=== PATIENT | female | born 1985 | race Caucasian/White ===

== ENCOUNTER 2023-03-17 04:10 | Day surgery (SDC) | payer OTHER ==
[2023-03-16 13:27] VITALS: BMI 25.8
[2023-03-17] MEDS ORDERED: BUPIVACAINE HCL/PF 0.5% (5MG/ML) 10 ML VIAL ONE (07:49)
[2023-03-17] MEDS ORDERED: LIDOCAINE HCL/PF 1% SDV 5ML VIAL ONE (07:49)
[2023-03-17 09:04] VITALS: RESP 20
[2023-03-17] MEDS ORDERED: LIDOCAINE HCL 1% PRESERVATIVE FREE - 30ML VIAL IJ ONE ×2 (10:47→10:48)
[2023-03-17] MEDS ORDERED: BUPIVACAINE HCL/PF 0.5% (5MG/ML) 10 ML VIAL IJ ONE ×2 (10:47→10:48)
[2023-03-17 12:24] VITALS: BP 132/78; TEMP 97.8
[2023-03-17 12:32] VITALS: PULSE 78
[2023-03-17] MEDS ORDERED: ACETAMINOPHEN 500 MG TABLET (FP) PO PRN (15:33)
== END 2023-03-17 12:33 | disposition home or self-care (01) ==
LOC: JASU-SURG 04:10
PROVIDERS: ATTEND Pain Medicine Pain Medicine
PROC: 3E0T33Z Introduction of Anti-inflammatory into Peripheral Nerves and Plexi, Percutaneous Approach (ICD-10-PCS; 2023-03-17)
PROC: 3E0T3BZ Introduction of Anesthetic Agent into Peripheral Nerves and Plexi, Percutaneous Approach (ICD-10-PCS; principal; 2023-03-17 10:30)
DX: M47.812 Spondylosis without myelopathy or radiculopathy, cervical region (principal)
CPT/HCPCS: 76000-TC-FY

== ENCOUNTER 2024-03-30 06:14 | Day surgery (SDC) | payer SELFPAY ==
[2024-03-29 11:19] VITALS: BMI 27.6
[2024-03-30] MEDS ORDERED: PROPOFOL 80 ML ONE (07:28)
[2024-03-30] MEDS ORDERED: MIDAZOLAM HCL 2 MG/2 ML SINGLE DOSE VIAL ONE (07:28)
[2024-03-30] MEDS ORDERED: HYDROmorphone HCL/PF 1 MG/ML VIAL ONE ×3 (07:28→13:26)
[2024-03-30] MEDS ORDERED: ROCURONIUM BROMIDE 50 MG/5 ML SYRINGE ONE ×2 (07:28→11:28)
[2024-03-30] MEDS ORDERED: ONDANSETRON 4 MG/2 ML VIAL ONE ×3 (07:29→16:16)
[2024-03-30] MEDS ORDERED: LIDOCAINE HCL/PF 2% SDV 5ML VIAL ONE (07:29)
[2024-03-30] MEDS ORDERED: DEXAMETHASONE SOD PHOSPHATE 4 MG/1 ML VIAL ONE (07:29)
[2024-03-30] MEDS ORDERED: SUGAMMADEX SODIUM 200 MG/2 ML VIAL ONE (07:30)
[2024-03-30] MEDS ORDERED: SEVOFLURANE 250 ML BTL ONE (07:31)
[2024-03-30] MEDS ORDERED: BUPIVACAINE HCL/PF 0.25% (2.5MG/ML) 10 ML VIAL ONE (07:47)
[2024-03-30] MEDS ORDERED: EPINEPHrine/PF 1 MG/1 ML (1:1,000) AMPULE ONE (07:47)
[2024-03-30] MEDS ORDERED: LIDOCAINE HCL 1%, 10 MG/ML (20ML VIAL) ONE (07:48)
[2024-03-30] MEDS ORDERED: GUM MASTIC/STORAX/MSAL/ALCOHOL 1 DRP DROPSBTL MC ONE (07:48)
[2024-03-30] MEDS ORDERED: BUPIVACAINE HCL/PF 2.5 MG/ML - 30 ML VIAL IJ ONE (07:48)
[2024-03-30] MEDS ORDERED: BACITRACIN ZINC 15 GM TUBE TOPICAL OINTMENT ONE (07:48)
[2024-03-30] MEDS ORDERED: ceFAZolin SODIUM 1 GM VIAL ONE ×2 (10:08→14:49)
[2024-03-30] MEDS ORDERED: LACTATED RINGERS SOLUTION 1,000 ML IV SCH (11:45)
[2024-03-30] MEDS ORDERED: oxyCODONE HCL 5 MG TABLET PO PRN ×2 (11:45)
[2024-03-30] MEDS ORDERED: PROPOFOL 20 ML ONE (12:03)
[2024-03-30] MEDS: BUPIVACAINE HCL/PF 2.5 MG/ML - 30 ML VIAL IJ ONE ×2 (13:35→15:40)
[2024-03-30] MEDS ORDERED: GLYCOPYRROLATE 0.2 MG/1 ML VIAL ONE (14:56)
[2024-03-30] MEDS ORDERED: NEOSTIGMINE METHYLSULFATE 0.5 MG/1 ML - 10 ML MDV ONE (14:56)
[2024-03-30] MEDS ORDERED: ACETAMINOPHEN INJECTION 100 ML IVPB ONE (16:16)
[2024-03-30] MEDS: ONDANSETRON 4 MG/2 ML VIAL IVPUSH PRN (16:16)
[2024-03-30] MEDS: ACETAMINOPHEN 1000 MG/100 ML BAG IVPB PRN (16:20)
[2024-03-30] MEDS: PROMETHAZINE HCL 25 MG/1 ML VIAL IVPB PRN (16:30)
[2024-03-30] MEDS ORDERED: PROMETHAZINE HCL 25 MG/1 ML VIAL ONE (16:34)
[2024-03-30 17:25] VITALS: RESP 18
[2024-03-30 17:59] VITALS: BP 124/80; PULSE 96
[2024-03-30 18:29] VITALS: TEMP 97.2
== END 2024-03-30 18:30 | disposition home or self-care (01) ==
LOC: FASU 06:14
PROVIDERS: ATTEND Surgery
CPT/HCPCS: 94760; J0131

== ENCOUNTER 2024-07-07 09:31 | Emergency (ER) | payer OTHER ==
[2024-07-07 10:00] VITALS: BP 125/89; PULSE 66; RESP 16; TEMP 98.3; BMI 27.4
[2024-07-07] MEDS: SODIUM CHLORIDE 0.9% 500 ML INFUS.BAG IV ONE (10:30)
[2024-07-07] MEDS ORDERED: ACETAMINOPHEN INJECTION 100 ML ONE (10:33)
[2024-07-07] MEDS: ACETAMINOPHEN 1000 MG/100 ML BAG IVPB ONE (10:50)
[2024-07-07] MEDS ORDERED: FAMOTIDINE 20 MG/50 ML IVPB 20 MG/50 ML MG IVPB ONE (10:59)
[2024-07-07] MEDS ORDERED: MAG HYDROX/AL HYDROX/SIMETH 30 ML UNIT-DOSE CUP ONE (10:59)
[2024-07-07 11:02] LABS: HEMATOCRIT 43.1 % (32.4-45.2); HEMOGLOBIN 14.2 G/dL (10.7-15.3); MCHC 32.9 g/dl (32.0-36.0); MEAN CELL VOLUME 88.2 fl (80-96); MEAN PLT VOLUME 8.3 fl (7.5-11.1); PLATELET COUNT 283.6 10^3/uL (134-434); RBC 4.89 10^6/uL (3.60-5.2); RDW 14.5 % (11.6-15.6)
[2024-07-07 11:22] LABS: ALBUMIN 4.4 g/dl (3.4-5.0); ALK PHOS 80 U/L (45-117); ANION GAP 8 mmol/L (4-13); BILIRUBIN,TOTAL 0.8 mg/dl (0.2-1); CALCIUM 9.2 mg/dl (8.5-10.1); CHLORIDE 102 mmol/L (98-107); CO2 27 mmol/L (21-32); CREATININE 0.7 mg/dl (0.6-1.3); GLUCOSE,RANDOM 100 mg/dl (74-106); POTASSIUM 3.9 mmol/L (3.5-5.1); SGOT/AST 12 U/L (15-37); SGPT/ALT 16 U/L (7-52); SODIUM 137 mmol/L (136-145); TOT PROT 6.9 g/dl (6.4-8.2)
[2024-07-07] MEDS: MAG HYDROX/AL HYDROX/SIMETH 30 ML UNIT-DOSE CUP PO ONE (11:45)
[2024-07-07] MEDS: FAMOTIDINE 20 MG/50 ML IVPB 20 MG/50 ML MG IVPB ONE (11:45)
[2024-07-07 12:43] LABS: PLATELET ESTIMATE ADEQUATE
== END 2024-07-07 13:31 | disposition home or self-care (01) ==
LOC: FER 09:31
PROC: 3E033GC Introduction of Other Therapeutic Substance into Peripheral Vein, Percutaneous Approach (ICD-10-PCS; principal; 2024-07-07)
PROC: 3E033NZ Introduction of Analgesics, Hypnotics, Sedatives into Peripheral Vein, Percutaneous Approach (ICD-10-PCS; 2024-07-07)
DX: R10.13 Epigastric pain (principal); R10.12 Left upper quadrant pain
CPT/HCPCS: 36415; 74177-TC; 80053; 81003; 83605; 83690; 84484; 85027; 87086; 93005; 99285-25; J0131

== ENCOUNTER 2025-06-21 06:15 | Day surgery (SDC) | payer SELFPAY ==
[2025-06-16 14:53] VITALS: BMI 24.5
[2025-06-21] MEDS ORDERED: BACITRACIN/POLYMYXIN OPH OINT 3.5 GM TUBE ONE (07:52)
[2025-06-21] MEDS ORDERED: EPINEPHrine 1:1000 P/F - 1 MG/ML AMP ONE ×2 (07:52→13:10)
[2025-06-21] MEDS ORDERED: LIDOCAINE HCL 1%, 10 MG/ML (20ML VIAL) ONE ×2 (07:53→13:11)
[2025-06-21] MEDS ORDERED: MIDAZOLAM HCL 2 MG/2 ML SINGLE DOSE VIAL ONE (07:56)
[2025-06-21] MEDS ORDERED: ROCURONIUM BROMIDE 50 MG/5 ML SYRINGE ONE ×2 (07:56→11:02)
[2025-06-21] MEDS ORDERED: PROPOFOL 20 ML ONE ×3 (07:59→17:17)
[2025-06-21] MEDS ORDERED: SUCCINYLCHOLINE CHLORIDE 200 MG/10 ML SYRINGE ONE (08:04)
[2025-06-21] MEDS ORDERED: BACITRACIN ZINC 15 GM TUBE TOPICAL OINTMENT ONE ×2 (11:32→17:23)
[2025-06-21] MEDS ORDERED: HYDROmorphone HCL/PF 1 MG/ML VIAL ONE ×2 (14:13→16:14)
[2025-06-21] MEDS ORDERED: ONDANSETRON 4 MG/2 ML VIAL ONE (17:19)
[2025-06-21] MEDS ORDERED: PROMETHAZINE HCL 25 MG/1 ML VIAL IVPB PRN (17:40)
[2025-06-21] MEDS ORDERED: LACTATED RINGERS SOLUTION 1,000 ML IV SCH (17:45)
[2025-06-21] MEDS ORDERED: ACETAMINOPHEN 325 MG TABLET (FP) PO PRN (18:15)
[2025-06-21] MEDS ORDERED: ONDANSETRON 4 MG/2 ML VIAL IVPUSH PRN (18:15)
[2025-06-21] MEDS ORDERED: DOCUSATE SODIUM 100 MG CAPSULE (FP) PO PRN (18:17)
[2025-06-21] MEDS: ONDANSETRON 4 MG/2 ML VIAL IVPUSH PRN (18:20)
[2025-06-21] MEDS: LACTATED RINGERS SOLUTION 1,000 ML IV SCH (19:47)
[2025-06-21] MEDS: CLINDAMYCIN 600MG PREMIX IVPB 600 MG/50 ML BAG IVPB SCH (19:48)
[2025-06-21 20:37] VITALS: BP 123/82; PULSE 89; RESP 16; TEMP 98.1
== END 2025-06-21 22:50 | disposition home or self-care (01) ==
LOC: FASUSAT 06:15 → FASU 06:15 → FM/S 19:11 → FASU 19:11 → FM/S 19:25 → FASUSAT 22:50
PROVIDERS: ATTEND Surgery
CPT/HCPCS: 81025; 94760